=== PATIENT | female | born 1990 ===

== ENCOUNTER 2023-10-23 14:18 | Outpatient (REF) | payer MEDICAID, OTHER, SELFPAY ==
[2023-10-23 16:00] LABS: Influenza A PCR NEGATIVE (Negative); Influenza B PCR NEGATIVE (Negative); Resp Syncy Virus RNA Qual PCR NEGATIVE (Negative); SARS COV2 PCR INHOUSE NEGATIVE (Negative)
== END 2023-10-23 14:19 | disposition home or self-care (01) ==
LOC: HO.HHCLNP 14:18
PROVIDERS: Visit Provider Emergency Medicine
DX: Z11.52 Encounter for screening for COVID-19 (principal); Z20.822 Contact with and (suspected) exposure to COVID-19; J02.0 Streptococcal pharyngitis
CPT/HCPCS: 0241U